=== PATIENT | female | born 1995 | race Caucasian/White ===

== ENCOUNTER 2019-12-07 10:24 | Emergency (ER) | payer OTHER ==
[2019-12-07 11:34] VITALS: BP 110/74
[2019-12-07 13:32] LABS: Influenza A Molecular Negative (Negative); Influenza B Molecular Negative (Negative)
--- NOTE | 2019-12-07 13:40 | UC ---
Throat Pain/Nasal Foreign HPI - HPI Summary HPI Summary: 24 y/o female presents to the urgent care c/o Bilateral ear pain, fatigue, nausea and body aches since yesterday. She feels sinus pressure and mild PND w/ sore throat. She has not taken any medication. Pt used to have recurrent ear infections as a child, now she feels a lot of pressure. Pt denies fever, cough , SOB, chest pain, abdominal pain, N/V/D. - History of Current Complaint Chief Complaint: UCGeneralIllness Stated Complaint: FATIGUE,WEAK,EAR PAIN,TROUBLE SWOLLOWING Time Seen by Provider: 12/07/19 13:04 Hx Obtained From: Patient ?: No Onset/Duration: Gradual Onset, Lasting Days - 1 day, Worse Since - today Severity: Mild Pain Intensity: 3 Pain Scale Used: 0-10 Numeric Cough: None Associated Signs & Symptoms: Positive: Sinus Discomfort, Nasal Discharge - clear. Negative: Dysphagia, Wheezing, Fever, Vomiting, Rash - Epiglottits Risk Factors Epiglottis Risk Factors: Negative - Allergies/Home Medications Allergies/Adverse Reactions: Allergies Allergy/AdvReac Type Severity Reaction Status Date / Time ibuprofen Allergy Anaphylatic Verified 12/07/19 11:27 Shock Home Medications: Home Medications lamoTRIgine TAB(*) [LaMICtal TAB(*)] 150 mg PO BID 12/07/19 [History Confirmed 12/07/19] PMH/Surg Hx/FS Hx/Imm Hx Previously Healthy: Yes - Pt denies PMHX - Surgical History Surgical History: Yes Surgery Procedure, Year, and Place: tympanoplasty. Tonsillectomy. L knee - Family History Known Family History: Positive: Cardiac Disease, Hypertension, Diabetes - Social History Occupation: Employed Full-time Lives: With Family Alcohol Use: Rare Substance Use Type: None Smoking Status (MU): Light Every Day Tobacco Smoker Type: eCigarettes Review of Systems All Other Systems Reviewed And Are Negative: Yes Constitutional: Positive: Other - body aches Skin: Positive: Negative Eyes: Positive: Negative ENT: Positive: Sore Throat, Ear Ache - B/L ear pain, Nasal Discharge - clear, Sinus Congestion Respiratory: Positive: Negative Cardiovascular: Positive: Negative Gastrointestinal: Positive: Negative Genitourinary: Positive: Negative Motor: Positive: Negative Neurovascular: Positive: Negative Musculoskeletal: Positive: Myalgia Neurological: Positive: Negative Psychological: Positive: Negative Is Patient Immunocompromised?: No Physical Exam - Summary Physical Exam Summary: VITAL SIGNS: Reviewed. GENERAL: Patient is a well developed and nourished female who is sitting comfortably in the examining table. Patient is not in any acute respiratory distress. HEAD AND FACE: No signs of trauma. No ecchymosis, hematomas or skull depressions. No sinus tenderness. EYES: PERRLA, EOMI x 2, No injected conjunctiva, no nystagmus. No photophobia. EARS: Hearing grossly intact. Ear canals and tympanic membranes are within normal limits. MOUTH: Positive pharynx with erythema, no exudates, No B/L tonsillar enlargement , no exudate. Uvula in midline. edematous nasal mucosa w/ clear nasal discharge, clear PND NECK: Supple, trachea is midline, Positive anterior cervical lymphadenopathy, no JVD, no carotid bruit, no c-spine tenderness, neck with full ROM. No meningeal signs, no Kernig's or brudzinskis signs. CHEST: Symmetric, no tenderness at palpation LUNGS: Clear to auscultation bilaterally. No wheezing or crackles. CVS: Regular rate and rhythm, S1 and S2 present, no murmurs or gallops appreciated. ABDOMEN: Soft, non-tender. No signs of distention. No rebound no guarding, and no masses palpated. Bowel sounds are normal. EXTREMITIES: FROM in all major joints, no edema, no cyanosis or clubbing. NEURO: Alert and oriented x 3. No acute neurological deficits. Pt follows commands. SKIN: Dry and warm Triage Information Reviewed: Yes Vital Signs: Initial Vital Signs Temp 99.2 F 12/07/19 11:28 Pulse 78 12/07/19 11:28 Resp 14 12/07/19 11:28 BP 110/74 12/07/19 11:28 Pulse Ox 100 12/07/19 11:28 Throat Pain/Nasal Course/Dx - Course Course Of Treatment: 24 y/o female presents to the urgent care c/o Bilateral ear pain, fatigue, nausea and body aches since yesterday. She feels sinus pressure and mild PND w/ sore throat. She has not taken any medication. Pt used to have recurrent ear infections as a child, now she feels a lot of pressure. Pt denies fever, cough , SOB, chest pain, abdominal pain, N/V/D. Hx obtained. Pt is hemodynamically stable, A&OX3, w/ a pharyngtis on examination. Rapid strep: negative, Rapid influenza A&B: negative. Pt advise to take ibuprofen PO or Tylenol to alleviates symptoms of pain and swelling. Advised on hand washing to avoid spreading. Pt advised to rest, eat well and avoid strenuous exercise. If symptoms do not improve or worsen advised to return to the urgent care or f/u with her PCP for further evaluation and treatment. Pt understood and agreed w/ plan of care. - Differential Dx/Diagnosis Differential Diagnosis/HQI/PQRI: Influenza, Laryngitis, Mononucleosis, Otitis Media, Pharyngitis, Sinusitis, Tonsillitis, URI Provider Diagnosis: Acute viral pharyngitis Discharge ED - Sign-Out/Discharge Documenting (check all that apply): Patient Departure - D/C home All imaging exams completed and their final reports reviewed: No Studies - Discharge Plan Condition: Stable Disposition: HOME Patient Education Materials: Pharyngitis (ED) Forms: *Work Release Referrals: [facility] [Outside] - 3 Days Additional Instructions: 1-Please continue taking Tylenol PO q6-8hrs prn as instructed after meals to alleviate fever, and sore throat. Increase fluid intake, eat well, rest and avoid strenuous exercise 2-If symptoms do not improve or worsen please return to the urgent care or f/u with your PCP in 3 days for further evaluation and treatment. - Billing Disposition and Condition Condition: STABLE Disposition: Home
== END 2019-12-07 13:51 | disposition home or self-care (01) ==
LOC: UCCORT 10:24
DX: J02.8 Acute pharyngitis due to other specified organisms (principal); F17.290 Nicotine dependence, other tobacco product, uncomplicated; Z88.6 Allergy status to analgesic agent
CPT/HCPCS: 87651; 99201; G0463

== ENCOUNTER 2020-01-22 16:28 | Emergency (ER) | payer OTHER ==
--- NOTE | 2020-01-22 16:31 | UC ---
Complaint Female HPI - HPI Summary HPI Summary: 25 yo female presents with PID. She tells me that she saw Dr. Mayo (OBGYN) today for some vaginal pain. She had an exam, labwork, and vaginal cultures performed. Dr. Mayo dx'd her with PID and prescribed her doxycycline and flagyl, but was advised to come here for an injection of Rocephin as his office did not have this. Pt states she is currently in no pain and is afebrile. - History Of Current Complaint Stated Complaint: PERSONAL Time Seen by Provider: 01/22/20 16:30 Hx Obtained From: Patient Severity Currently: None - Allergies/Home Medications Allergies/Adverse Reactions: Allergies Allergy/AdvReac Type Severity Reaction Status Date / Time ibuprofen Allergy Severe Anaphylatic Verified 01/22/20 16:38 Shock Home Medications: Home Medications lamoTRIgine TAB(*) [LaMICtal TAB(*)] 150 mg PO BID 12/07/19 [History Confirmed 01/22/20] PMH/Surg Hx/FS Hx/Imm Hx Neurological History: Seizures Psychological History: Bipolar Disorder - Surgical History Surgical History: Yes Surgery Procedure, Year, and Place: tympanoplasty. Tonsillectomy. L knee - Family History Known Family History: Positive: Cardiac Disease, Hypertension, Diabetes - Social History Lives: With Family Alcohol Use: Rare Substance Use Type: None Smoking Status (MU): Light Every Day Tobacco Smoker Type: eCigarettes Review of Systems All Other Systems Reviewed And Are Negative: No Constitutional: Positive: Negative Skin: Positive: Negative Respiratory: Positive: Negative Cardiovascular: Positive: Negative Genitourinary: Positive: Other - Vaginal pain Neurological/Mental Status: Positive: Negative Psychological: Positive: Negative Physical Exam - Summary Physical Exam Summary: GENERAL: NAD. WDWN. No pain distress. SKIN: No rashes, sores, lesions, or open wounds. NECK: Supple. Nontender. No lymphadenopathy. CHEST: CTAB. No r/r/w. No accessory muscle use. Breathing comfortably and in no distress. CV: RRR. Pulses intact. Cap refill <2seconds ABDOMEN: Soft. NTTP. No CVA tenderness. Bowel sounds present NEURO: Alert. PSYCH: Age appropriate behavior. Triage Information Reviewed: Yes Vital Signs: Vital Signs: Temp Pulse Resp BP Pulse Ox 98.7 F 68 16 120/70 99 01/22/20 16:33 01/22/20 16:33 01/22/20 16:33 01/22/20 16:33 01/22/20 16:33 Vital Signs Reviewed: Yes Complaint Female Dx - Course Course Of Treatment: She declined pelvic exam today as she just had one by OBGYN earlier today. Spoke with weed control inspector Dr. Holley who confirmed with Dr. Mayo the HPI and report from pt. She was given 250mg IM Rocephin in the clinic and advised to take medications as prescribed by Dr. Mayo and f/u as advised. - Differential Dx/Diagnosis Provider Diagnosis: Vaginal pain Discharge ED - Sign-Out/Discharge Documenting (check all that apply): Patient Departure All imaging exams completed and their final reports reviewed: No Studies - Discharge Plan Condition: Stable Disposition: HOME Patient Education Materials: Pelvic Inflammatory Disease (ED) Referrals: No Primary Care Phys,NOPCP [Primary Care Provider] - Additional Instructions: Please start that antibiotics that were called into [facility] from your MANAGER ENTERPRISE doctor. You were given an injection of 250mg of Rocephin (antibiotic) today - Billing Disposition and Condition Condition: STABLE Disposition: Home
[2020-01-22 16:43] VITALS: BP 120/70
[2020-01-22] MEDS ORDERED: cefTRIAXone VIAL(*) 250 MG VIAL IM ONE (16:51)
[2020-01-22] MEDS ORDERED: Lidocaine 1% MPF ** 5 ML VIAL IM ONE (16:51)
== END 2020-01-22 17:09 | disposition home or self-care (01) ==
LOC: UCEAST 16:28
DX: R10.2 Pelvic and perineal pain (principal); R56.9 Unspecified convulsions; F31.9 Bipolar disorder, unspecified; Z79.899 Other long term (current) drug therapy; Z88.6 Allergy status to analgesic agent; F17.290 Nicotine dependence, other tobacco product, uncomplicated
CPT/HCPCS: 96372; 99211; G0463; J0696

== ENCOUNTER 2020-02-11 14:42 | Emergency (ER) | payer OTHER ==
[2020-02-11] MEDS ORDERED: Morphine 4 MG/ML VIAL (1 ml) 4 MG/ML VIAL IV ONE (15:36)
--- NOTE | 2020-02-11 15:44 | ED ---
GI/ HPI - HPI Summary HPI Summary: Patient is a 25 y/o F presenting to [facility] with complaints of RLQ abdominal pain with radiation into her back. Patient states that she was having pain at this area intermittently for the past 1-1.5 months. Episodes of pain became more frequent, she was evaluated last week and was found to have a right-sided ovarian cyst. Today, the patient experienced an exacerbation of her pain. WIRE BRUSH OPERATOR was called and the patient was advised to come to ED to rule out ovarian torsion. Pain is still present in room but not as severe as initially. N/V/D, constipation, dysuria, hematuria, vaginal discharge are denied. Last PO intake was around 1130 today. She is currently on her menstrual cycle; patient notes that she is on schedule. Patient is sexually active and had STI testing done two weeks ago, which resulted negative. 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 PMHx otherwise denied. PSHx of left ear tympanoplasy, ACL repair of left knee, and tonsillectomy. Patient states that she vapes, drinks alcohol occasionally on a social basis, and denies other substance usage. Home medications and allergies are reviewed. - History of Current Complaint Chief Complaint: EDAbdPain Time Seen by Provider: 02/11/20 15:30 Stated Complaint: ABD PAIN Hx Obtained From: Patient Hx Last Menstrual Period: 01/13/20 Onset/Duration: Started Weeks Ago, Still Present, Worse Since Timing: Lasting Weeks Severity: Severe Current Severity: Severe Pain Intensity: 8 Location of Pain: Radiates to: - back, RLQ Associated Signs and Symptoms: Positive: Abdominal Pain. Negative: Nausea, Vomiting, Constipation, Diarrhea, Hematuria, Dysuria Additional Signs & Symptoms: Positive: Vaginal Bleeding - on menstrual cycle. Negative: Vaginal Discharge - Allergy/Home Medications Allergies/Adverse Reactions: Allergies Allergy/AdvReac Type Severity Reaction Status Date / Time ibuprofen Allergy Severe Anaphylatic Verified 01/22/20 16:38 Shock Home Medications: Home Medications lamoTRIgine TAB(*) [LaMICtal TAB(*)] 150 mg PO BID 12/07/19 [History Confirmed 02/11/20] PMH/Surg Hx/FS Hx/Imm Hx Endocrine/Hematology History: Denies: Hx Diabetes, Hx Thyroid Disease Cardiovascular History: Denies: Hx Hypertension Respiratory History: Denies: Hx Asthma, Hx Chronic Obstructive Pulmonary Disease (COPD) GI History: Denies: Hx Ulcer - Surgical History Surgery Procedure, Year, and Place: tympanoplasty of left knee. Tonsillectomy. L knee ACL repair Infectious Disease History: No Infectious Disease History: Denies: Hx Hepatitis, Hx Human Immunodeficiency Virus (HIV), Traveled Outside the [place] in Last 30 Days - Family History Known Family History: Positive: Cardiac Disease, Hypertension, Diabetes - Social History Alcohol Use: Rare Substance Use Type: Reports: None Smoking Status (MU): Light Every Day Tobacco Smoker Type: eCigarettes Review of Systems Gastrointestinal: Other - negative - constipation Positive: Abdominal Pain. Negative: Vomiting, Diarrhea, Nausea Genitourinary: Other - negative - vaginal bleeding Negative: dysuria, discharge - vaginal , hematuria All Other Systems Reviewed And Are Negative: Yes Physical Exam - Summary Physical Exam Summary: Constitutional: Well-developed, Well-nourished, Alert. (-) Distressed Skin: Warm, Dry HENT: Normocephalic; Atraumatic Eyes: Conjunctiva normal Neck: Musculoskeletal ROM normal neck. (-) JVD, (-) Stridor, (-) Tracheal deviation Cardio: Rhythm regular, rate normal, Heart sounds normal; Intact distal pulses; Radial pulses are 2+ and symmetric. (-) Murmur Pulmonary/Chest wall: Effort normal. (-) Respiratory distress, (-) Wheezes, (-) Rales Abd: Soft, (+) RLQ tenderness, (-) Distension, (-) Guarding, (-) Rebound Musculoskeletal: (-) Edema Lymph: (-) Cervical adenopathy Neuro: Alert, Oriented x3 Psych: Mood and affect Normal Triage Information Reviewed: Yes Vital Signs On Initial Exam: Initial Vitals Temp Pulse Resp BP Pulse Ox 97.8 F 93 16 130/81 98 02/11/20 14:45 02/11/20 14:45 02/11/20 14:45 02/11/20 14:45 02/11/20 14:45 Vital Signs Reviewed: Yes Procedures - Sedation Patient Received Moderate/Deep Sedation with Procedure: No Diagnostics - Vital Signs Vital Signs Temp Pulse Resp BP Pulse Ox 02/11/20 14:45 97.8 F 93 16 130/81 98 - Laboratory Result Diagrams: 02/11/20 15:41 02/11/20 15:41 Lab Statement: Any lab studies that have been ordered have been reviewed, and results considered in the medical decision making process. - CT CT ABD/PEL CT Interpretation Completed By: Radiologist Summary of CT Findings: IMPRESSION: Appendix is visualized and appears to be normal in caliber measuring up to 0.5. cm. Right ovarian cyst measuring 3.6 x 3.0 cm. A small amount of free fluid is noted in the. cul-de-sac. 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 THIS REPORT WAS REVIEWED BY ED PHYSICIAN. - Ultrasound TRANSVAGINAL US Ultrasound Interpretation Completed By: Radiologist Summary of Ultrasound Findings: IMPRESSION: Cyst in the right ovary measuring up to 4.3 cm. Doppler interrogation. demonstrates flow in both ovaries. THIS REPORT WAS REVIEWED BY ED PHYSICIAN. Re-Evaluation - Re-Evaluation First Eval Re-Evaluation Time: 17:23 Change: Improved Comment: Patient states pain is improved and is agreeable with discharge. GIGU Course/Dx - Course Course Of Treatment: Patient is here with right lower quadrant pain. Patient's had pain for a month and has been diagnosed with a right ovarian cyst. Patient' s pain acutely worse today so there is concern about torsion. Patient had an ultrasound performed while she was in severe pain which showed no evidence of torsion. Patient had blood work performanced which was grossly unremarkable. Given patient's pain location, a CT scan was ordered to make sure she didn't have appendicitis. Patient's CT scan was negative for any acute abnormality. Patient was given 1 dose of morphine with cessation of her pain. Patient could be intermittently having torsion but this is her first episode of severe pain. Patient follow-up with Dr. Campbell and was told to come back for any severe pain. - Diagnoses Provider Diagnoses: Ovarian cyst, right, RLQ abdominal pain - Critical Care Time Critical Care Statement: Critical care time is provided exclusive of any time spent performing procedures. Discharge ED - Sign-Out/Discharge Documenting (check all that apply): Patient Departure - discharge - Discharge Plan Condition: Stable Disposition: HOME Patient Education Materials: Ovarian Cyst (ED), Abdominal Pain (ED) Referrals: Lucio Campbell MD [Medical Doctor] - Additional Instructions: CALL DR. CAMPBELL ABOUT YOUR ED VISIT. TAKE TYLENOL AND ALEVE FOR PAIN. PLEASE RETURN TO ED FOR SEVERE ABDOMINAL PAIN, VOMITING, OR ANY OTHER CONCERNING SYMPTOMS. - Billing Disposition and Condition Condition: STABLE Disposition: Home - Attestation Statements Document Initiated by Scribe: Yes Documenting Scribe: SKIP LIRA Provider For Whom Scribcurtis is Documenting (Include Credential): JEFFERY SHAH MD Scribe Attestation: SKIP Holley, scribed for JEFFERY SHAH MD on 02/11/20 at 1747. Scribe Documentation Reviewed: Yes Provider Attestation: The documentation as recorded by the SKIP coombs accurately reflects the service I personally performed and the decisions made by me, JEFFERY SHAH MD Status of Scribe Document: Viewed
[2020-02-11 15:53] LABS: ABS Basophils 0.1 10^3/ul (0-0.2); ABS Eosinophils 0.1 10^3/ul (0-0.6); ABS Monocytes 0.9 10^3/ul (0-0.8); ABS Neutrophils 6.8 10^3/ul (1.5-7.7); Eosinophil % 1.3 %; Hematocrit 37 % (35-47); Hemoglobin 12.7 g/dL (12.0-16.0); Lymphocyte % 27.5 %; Mean Corpuscular HGB Conc 34 g/dL (31-36); Mean Corpuscular Hemoglobin 29 pg (27-31); Mean Corpuscular Volume 87 fL (80-97); Mean Platelet Volume 7.9 fL (7.4-10.4); Nucleated Red Blood Cells % 0.1; Platelet Count 344 10^3/uL (150-450); Red Blood Count 4.32 10^6 /uL (3.70-4.87); Red Cell Distribution Width 15 % (10-15)
[2020-02-11 16:04] LABS: INR 1.02 (0.82-1.09)
[2020-02-11 16:27] LABS: HCG Pregnancy < 0.60 mIU/mL
[2020-02-11 16:40] LABS: ALT 16 U/L (7-52); AST 21 U/L (13-39); Albumin 4.1 g/dL (3.2-5.2); Albumin/Globulin Ratio 1.6 (1-3); Alkaline Phosphatase 58 U/L (34-104); Anion Gap 7 mmol/L (2-11); BUN/Creatinine Ratio 12.6 (8-20); Blood Urea Nitrogen 11 mg/dL (6-24); C Reactive Protein < 1.00 mg/L (<8.01); CO2 Carbon Dioxide 23 mmol/L (22-32); Calcium 8.7 mg/dL (8.6-10.3); Chloride 108 mmol/L (101-111); EGFR African American 97.6 (>60); EGFR Non-African American 80.7 (>60); Globulin 2.6 g/dL (2-4); Glucose 79 mg/dL (70-100); Potassium 3.6 mmol/L (3.5-5.0); Sodium 138 mmol/L (135-145); Total Protein 6.7 g/dL (6.4-8.9)
[2020-02-11] MEDS ORDERED: Iohexol 300* (CONTRAST) 10 ML SDV IV ONE (16:47)
[2020-02-11 17:47] VITALS: BP 98/62
== END 2020-02-11 17:47 | disposition home or self-care (01) ==
LOC: ED 14:42
DX: N83.201 Unspecified ovarian cyst, right side (principal); R10.31 Right lower quadrant pain; F17.210 Nicotine dependence, cigarettes, uncomplicated
CPT/HCPCS: 36415; 74177; 76830; 80053; 84702; 85025; 85610; 86140; 96374; 99283; J2270; Q9967